=== PATIENT | female | born 1980 | race African-American/Black ===

== ENCOUNTER 2021-04-12 16:40 | Emergency (ER) | payer OTHER ==
[~2021-04-12] VITALS: Ht 167.6 cm; Wt 75.0 kg
[2021-04-12] MEDS ORDERED: BUSP5TA PO (17:04)
[2021-04-12] MEDS ORDERED: FLUO10CA18 PO (17:04)
[2021-04-12] MEDS ORDERED: LORazepam 1 MG TAB PO STA (17:42)
[2021-04-12 21:25] VITALS: BP 126/90
== END 2021-04-12 20:30 | disposition home or self-care (01) ==
LOC: M ED 16:40
DX: F43.0 Acute stress reaction (principal); F41.9 Anxiety disorder, unspecified; Z88.0 Allergy status to penicillin; Z98.84 Bariatric surgery status

== ENCOUNTER 2022-10-25 12:10 | Inpatient (IN) | payer OTHER ==
[~2022-10-25] VITALS: Ht 167.6 cm; Wt 60.8 kg
[~2022-10-25 12:10] MED LIST: BUSP5TA PO; FLUO10CA18 PO
[2022-10-25] MEDS ORDERED: MULT-90 PO (12:34)
[2022-10-25 13:12] LABS: VENOUS BASE EXCESS -1.6 (-2.0-2.0); VENOUS HCO3 21.7 MMOL/L (23.0-27.0); VENOUS O2 SATURATION 68.7 % (60.0-80.0); VENOUS PARTIAL PRESSURE CO2 31.8 mmHg (38.0-50.0); VENOUS PARTIAL PRESSURE O2 37.8 mmHg (30.0-50.0); VENOUS PH 7.452 UNITS (7.330-7.430); VENOUS STANDARD HCO3 22.6 MMOL/L; VENOUS TOTAL CO2 22.7 MMOL/L (24.0-28.0)
[2022-10-25 13:18] LABS: BASO % 0.8 % (0.0-1.0); EOS % 0.3 % (0.0-3.0); HEMATOCRIT 30.5 % (36.0-47.0); HEMOGLOBIN 9.1 g/dl (12.0-15.5); LYMPH # 0.5 10^3/uL (1.5-5.0); LYMPH % 12.9 % (24.0-44.0); MEAN CORPUSCULAR HEMOGLOBIN 23.2 pg (27.0-33.0); MEAN CORPUSCULAR HGB CONC 29.8 g/dl (32.0-36.5); MEAN CORPUSCULAR VOLUME 77.8 fl (80.0-96.0); MONO # 0.3 10^3/uL (0.0-0.8); MONO % 8.6 % (2.0-8.0); NEUTROPHILS # 3.1 10^3/uL (1.5-8.5); NEUTROPHILS % 76.9 % (36.0-66.0); PLATELET COUNT, AUTOMATED 140 10^3/uL (150-450); RED BLOOD COUNT 3.92 10^6/uL (4.00-5.40)
[2022-10-25 13:41] LABS: ETHYL ALCOHOL (ETHANOL) < 0.003 % (0.000-0.010)
[2022-10-25 13:45] LABS: VITAMIN B12 LEVEL 709 PG/ML (211-911)
[2022-10-25 13:46] LABS: THYROID STIMULATING HORMONE 1.179 uIU/ML (0.55-4.78)
[2022-10-25 13:47] LABS: OSMOLALITY SERUM 281 MOSM/KG (275-295)
[2022-10-25 13:50] LABS: ALBUMIN 3.6 G/DL (3.2-5.2); ALKALINE PHOSPHATASE 116 U/L (46-116); ALT/SGPT 79 U/L (7.0-40); AST/SGOT 367 U/L (<34); BILIRUBIN,DIRECT 0.6 MG/DL (<0.4); BLOOD UREA NITROGEN 8 MG/DL (9-23); CALCIUM LEVEL 8.2 MG/DL (8.5-10.1); CARBON DIOXIDE LEVEL 21 MMOL/L (20-31); CHLORIDE LEVEL 94 MMOL/L (98-107); CREATININE FOR GFR 0.39 MG/DL (0.55-1.30); GLOMERULAR FILTRATION RATE > 60.0 (>58); GLUCOSE, FASTING 70 MG/DL (60-100); MAGNESIUM LEVEL 1.4 MG/DL (1.8-2.4); POTASSIUM SERUM 2.8 MMOL/L (3.5-5.1); SODIUM LEVEL 137 MMOL/L (136-145); TOTAL PROTEIN 8.1 G/DL (5.7-8.2)
[2022-10-25] MEDS ORDERED: MAG SULF 1GM/100ML (MAG RUN) 1 GM in IV 1 EA IV ONE ×2 (14:55→16:00)
[2022-10-25] MEDS ORDERED: MED REC IN PROGRESS XX SCH (15:20)
[2022-10-25] MEDS ORDERED: KCL 10MEQ/100ML SWI (KRUN) 10 MEQ in IV 1 EA IV ONE (15:25)
[2022-10-25] MEDS ORDERED: HOME MED LIST COMPLETE! XX SCH (15:25)
[2022-10-25] MEDS ORDERED: CALCIUM GLUCONATE 1,000 MG in D5W MINI-BAG PLUS 100 ML IV ONE (15:25)
[2022-10-25 16:12] LABS: PHOSPHORUS LEVEL 3.3 MG/DL (2.5-4.9)
[2022-10-25] MEDS ORDERED: POTASSIUM CHLORIDE 10% LIQ 20MEQ/15ML UDC PO ONE ×2 (16:15→22:00)
[2022-10-25] MEDS ORDERED: MIDAZOLAM INJ 2MG/2ML VIAL IV STA (16:22)
[2022-10-25] MEDS ORDERED: KCL 10MEQ/100ML SWI (KRUN) 10 MEQ in IV 1 EA IV SCH (17:00)
[2022-10-25] MEDS ORDERED: PROHANCE 279.3MG/ML 15ML VIAL As Ordered ONE (17:35)
[2022-10-25 18:55] LABS: INR 1.02; PROTHROMBIN TIME 13.6 SECONDS (12.5-14.5)
[2022-10-25 18:56] LABS: PARTIAL THROMBOPLASTIN TIME 25.6 SECONDS (24.8-34.2)
[2022-10-25 19:04] LABS: IRON (FE) 56 UG/DL (50-170); TOTAL IRON BINDING CAPACITY 294 UG/DL (250-425)
[2022-10-25 19:06] LABS: BLOOD UREA NITROGEN 7 MG/DL (9-23); CALCIUM LEVEL 8.5 MG/DL (8.5-10.1); CARBON DIOXIDE LEVEL 24 MMOL/L (20-31); CHLORIDE LEVEL 92 MMOL/L (98-107); GLOMERULAR FILTRATION RATE > 60.0 (>58); GLUCOSE, FASTING 58 MG/DL (60-100); PHOSPHORUS LEVEL 3.5 MG/DL (2.5-4.9); POTASSIUM SERUM 2.9 MMOL/L (3.5-5.1); SODIUM LEVEL 136 MMOL/L (136-145)
[2022-10-25] MEDS ORDERED: POTASSIUM CHLORIDE 10MEQ SR TABLET PO ONE (19:30)
[2022-10-25] MEDS ORDERED: GLUCAGON INJ 1MG VIAL SC PRN (19:35)
[2022-10-25] MEDS ORDERED: DEXTROSE 50% 50ML SYRINGE IV PRN (19:35)
[2022-10-25] MEDS ORDERED: GLUCOSE 4GM CHEW TABLET PO PRN (19:35)
[2022-10-25 19:38] LABS: HEPATITIS B CORE ANTIBODY IGM NEGATIVE (NEGATIVE); HEPATITIS C VIRUS ABY INDEX 0.16 INDEX (<0.8)
[2022-10-25] MEDS ORDERED: KCL 10MEQ/100ML SWI (KRUN) 100 ML IV SCH (20:00)
[2022-10-25] MEDS: KCL 10MEQ/100ML SWI (KRUN) 100 ML IV SCH ×2 (22:10→23:52)
[2022-10-25] MEDS: HEPARIN SOD (PORCINE) 5000UNITS/ML 1ML VIAL/SYRINGE SC SCH (22:17)
[2022-10-25] MEDS: PROCHLORPERAZINE 5MG TAB PO PRN (22:36)
[2022-10-26] MEDS: HEPARIN SOD (PORCINE) 5000UNITS/ML 1ML VIAL/SYRINGE SC SCH ×3 (06:00→22:05)
[2022-10-26 07:37] LABS: BASO % 0.7 % (0.0-1.0); HEMATOCRIT 27.7 % (36.0-47.0); HEMOGLOBIN 8.3 g/dl (12.0-15.5); LYMPH % 33.2 % (24.0-44.0); MEAN CORPUSCULAR HEMOGLOBIN 23.5 pg (27.0-33.0); MEAN CORPUSCULAR VOLUME 78.5 fl (80.0-96.0); MONO # 0.4 10^3/uL (0.0-0.8); MONO % 13.7 % (2.0-8.0); NEUTROPHILS # 1.5 10^3/uL (1.5-8.5); NEUTROPHILS % 51.1 % (36.0-66.0); PLATELET COUNT, AUTOMATED 124 10^3/uL (150-450); RED BLOOD COUNT 3.53 10^6/uL (4.00-5.40); WHITE BLOOD COUNT 2.9 10^3/uL (4.0-10.0)
[2022-10-26 08:00] LABS: ALBUMIN 3.2 G/DL (3.2-5.2); ALKALINE PHOSPHATASE 124 U/L (46-116); ALT/SGPT 76 U/L (7.0-40); AST/SGOT 430 U/L (<34); BILIRUBIN,TOTAL 1.1 MG/DL (0.3-1.2); BLOOD UREA NITROGEN 5 MG/DL (9-23); CALCIUM LEVEL 8.6 MG/DL (8.5-10.1); CARBON DIOXIDE LEVEL 28 MMOL/L (20-31); CHLORIDE LEVEL 97 MMOL/L (98-107); GLOMERULAR FILTRATION RATE > 60.0 (>58); GLUCOSE, FASTING 101 MG/DL (60-100); MAGNESIUM LEVEL 1.6 MG/DL (1.8-2.4); POTASSIUM SERUM 2.8 MMOL/L (3.5-5.1); SODIUM LEVEL 137 MMOL/L (136-145); TOTAL PROTEIN 7.3 G/DL (5.7-8.2)
[2022-10-26] MEDS: MAG SULF 1GM/100ML (MAG RUN) 1 GM in IV 1 EA IV SCH ×2 (08:53→09:49)
[2022-10-26] MEDS ORDERED: SCOPOLAMINE 1MG TRANSDERMAL PATCH TOP SCH (09:00)
[2022-10-26] MEDS ORDERED: ISOVUE-370 76% 100ML VIAL As Ordered ONE (10:17)
[2022-10-26] MEDS: POTASSIUM CHLORIDE 10% LIQ 20MEQ/15ML UDC PO SCH ×2 (11:09→22:04)
[2022-10-26] MEDS: KCL 10MEQ/100ML SWI (KRUN) 10 MEQ in IV 1 EA IV SCH ×2 (11:09→12:11)
[2022-10-26] MEDS: KETOROLAC 30 MG/ML 1ML VIAL IV PRN ×2 (11:09→22:07)
[2022-10-26 15:14] LABS: ALBUMIN 2.9 G/DL (3.2-5.2); ALKALINE PHOSPHATASE 131 U/L (46-116); ALT/SGPT 73 U/L (7.0-40); AST/SGOT 396 U/L (<34); BILIRUBIN,TOTAL 0.7 MG/DL (0.3-1.2); BLOOD UREA NITROGEN 5 MG/DL (9-23); CALCIUM LEVEL 8.3 MG/DL (8.5-10.1); CARBON DIOXIDE LEVEL 29 MMOL/L (20-31); CHLORIDE LEVEL 101 MMOL/L (98-107); CREATININE FOR GFR 0.42 MG/DL (0.55-1.30); GLOMERULAR FILTRATION RATE > 60.0 (>58); GLUCOSE, FASTING 117 MG/DL (60-100); MAGNESIUM LEVEL 2.1 MG/DL (1.8-2.4); SODIUM LEVEL 140 MMOL/L (136-145); TOTAL PROTEIN 6.9 G/DL (5.7-8.2)
[2022-10-26] MEDS ORDERED: LORazepam 1 MG TAB PO ONE (17:30)
[2022-10-26 17:44] LABS: LIPASE 84 U/L (12-53)
[2022-10-26] MEDS ORDERED: LORazepam 2 MG/ML 1ML VIAL IV ONE (18:00)
[2022-10-26] MEDS ORDERED: PROHANCE 279.3MG/ML 15ML VIAL As Ordered ONE (18:42)
[2022-10-26 20:18] VITALS: BP 138/93; TEMP 98.4; O2SAT 100
[2022-10-26] MEDS: RAMELTEON 8 MG TAB (ROZEREM) PO SCH (22:03)
[2022-10-27] VITALS (30 sets, daily range): BP systolic 115–149; BP diastolic 74–98; TEMP 97.7–98.5; O2SAT 97–100
[2022-10-27 03:31] LABS: BASO % 0.7 % (0.0-1.0); EOS # 0.1 10^3/uL (0.0-0.5); EOS % 2.1 % (0.0-3.0); HEMATOCRIT 26.4 % (36.0-47.0); HEMOGLOBIN 7.6 g/dl (12.0-15.5); LYMPH # 0.8 10^3/uL (1.5-5.0); LYMPH % 28.5 % (24.0-44.0); MEAN CORPUSCULAR HGB CONC 28.8 g/dl (32.0-36.5); MONO # 0.3 10^3/uL (0.0-0.8); MONO % 8.6 % (2.0-8.0); NEUTROPHILS # 1.7 10^3/uL (1.5-8.5); NEUTROPHILS % 59.8 % (36.0-66.0); PLATELET COUNT, AUTOMATED 115 10^3/uL (150-450); WHITE BLOOD COUNT 2.9 10^3/uL (4.0-10.0)
[2022-10-27 03:41] LABS: ALBUMIN 2.7 G/DL (3.2-5.2); ALKALINE PHOSPHATASE 133 U/L (46-116); ALT/SGPT 60 U/L (7.0-40); AST/SGOT 252 U/L (<34); BILIRUBIN,TOTAL 0.6 MG/DL (0.3-1.2); BLOOD UREA NITROGEN 7 MG/DL (9-23); CARBON DIOXIDE LEVEL 27 MMOL/L (20-31); CHLORIDE LEVEL 104 MMOL/L (98-107); CREATININE FOR GFR 0.35 MG/DL (0.55-1.30); GLOMERULAR FILTRATION RATE > 60.0 (>58); GLUCOSE, FASTING 102 MG/DL (60-100); POTASSIUM SERUM 3.4 MMOL/L (3.5-5.1); SODIUM LEVEL 141 MMOL/L (136-145); TOTAL PROTEIN 6.6 G/DL (5.7-8.2)
[2022-10-27] MEDS: POTASSIUM CHLORIDE 10% LIQ 20MEQ/15ML UDC PO SCH ×2 (05:49→21:08)
[2022-10-27] MEDS: HEPARIN SOD (PORCINE) 5000UNITS/ML 1ML VIAL/SYRINGE SC SCH ×3 (05:50→21:13)
[2022-10-27] MEDS: KETOROLAC 30 MG/ML 1ML VIAL IV PRN ×2 (06:52→15:18)
[2022-10-27 09:55] LABS: IMMUNOGLOBULIN A 176.2 MG/DL (40-350)
[2022-10-27] MEDS ORDERED: IRON SUCROSE 100MG 5ML VIAL IV ONE (10:15)
[2022-10-27] MEDS ORDERED: IRON SUCROSE 300 MG in NS 250 ML OVER 90 MIN. IV ONE (13:00)
[2022-10-27 15:27] LABS: ALBUMIN 2.8 G/DL (3.2-5.2); ALKALINE PHOSPHATASE 123 U/L (46-116); ALT/SGPT 55 U/L (7.0-40); AST/SGOT 197 U/L (<34); BILIRUBIN,TOTAL 0.6 MG/DL (0.3-1.2); BLOOD UREA NITROGEN 8 MG/DL (9-23); CARBON DIOXIDE LEVEL 28 MMOL/L (20-31); CHLORIDE LEVEL 102 MMOL/L (98-107); CREATININE FOR GFR 0.34 MG/DL (0.55-1.30); GLOMERULAR FILTRATION RATE > 60.0 (>58); GLUCOSE, FASTING 99 MG/DL (60-100); POTASSIUM SERUM 3.2 MMOL/L (3.5-5.1); SODIUM LEVEL 138 MMOL/L (136-145); TOTAL PROTEIN 6.4 G/DL (5.7-8.2)
[2022-10-27] MEDS: PROCHLORPERAZINE 5MG TAB PO PRN (16:32)
[2022-10-27] MEDS: RAMELTEON 8 MG TAB (ROZEREM) PO SCH (21:08)
[2022-10-28] VITALS (11 sets, daily range): BP systolic 113–132; BP diastolic 77–86; TEMP 97.3–98.2; O2SAT 96–100
[2022-10-28] MEDS: KETOROLAC 30 MG/ML 1ML VIAL IV PRN ×2 (02:08→08:15)
[2022-10-28 05:10] LABS: BASO % 0.3 % (0.0-1.0); EOS # 0.1 10^3/uL (0.0-0.5); EOS % 2.5 % (0.0-3.0); HEMATOCRIT 26.7 % (36.0-47.0); HEMOGLOBIN 7.8 g/dl (12.0-15.5); LYMPH # 0.9 10^3/uL (1.5-5.0); LYMPH % 25.2 % (24.0-44.0); MEAN CORPUSCULAR HEMOGLOBIN 23.6 pg (27.0-33.0); MEAN CORPUSCULAR HGB CONC 29.2 g/dl (32.0-36.5); MEAN CORPUSCULAR VOLUME 80.7 fl (80.0-96.0); MONO # 0.4 10^3/uL (0.0-0.8); MONO % 11.3 % (2.0-8.0); NEUTROPHILS # 2.1 10^3/uL (1.5-8.5); NEUTROPHILS % 60.4 % (36.0-66.0); PLATELET COUNT, AUTOMATED 141 10^3/uL (150-450); RED BLOOD COUNT 3.31 10^6/uL (4.00-5.40); WHITE BLOOD COUNT 3.5 10^3/uL (4.0-10.0)
[2022-10-28 05:31] LABS: ALBUMIN 2.7 G/DL (3.2-5.2); ALKALINE PHOSPHATASE 127 U/L (46-116); ALT/SGPT 49 U/L (7.0-40); AST/SGOT 141 U/L (<34); BILIRUBIN,TOTAL 0.4 MG/DL (0.3-1.2); BLOOD UREA NITROGEN 8 MG/DL (9-23); CARBON DIOXIDE LEVEL 28 MMOL/L (20-31); CHLORIDE LEVEL 104 MMOL/L (98-107); CREATININE FOR GFR 0.32 MG/DL (0.55-1.30); GLOMERULAR FILTRATION RATE > 60.0 (>58); GLUCOSE, FASTING 90 MG/DL (60-100); POTASSIUM SERUM 3.4 MMOL/L (3.5-5.1); SODIUM LEVEL 140 MMOL/L (136-145); TOTAL PROTEIN 6.3 G/DL (5.7-8.2)
[2022-10-28] MEDS: HEPARIN SOD (PORCINE) 5000UNITS/ML 1ML VIAL/SYRINGE SC SCH (06:03)
[2022-10-28] MEDS ORDERED: ISOVUE-370 76% 100ML VIAL As Ordered ONE (08:43)
[2022-10-28] MEDS ORDERED: IRON SUCROSE 300 MG in NS 250 ML IV SCH (12:00)
[2022-10-28] MEDS ORDERED: DRON2.5C11 PO (12:03)
[2022-10-28] MEDS ORDERED: K-TA1TAB PO (12:03)
[2022-10-28] MEDS ORDERED: TRAN1DIS4 TOP (12:03)
[2022-10-28] MEDS ORDERED: IBUP-1114 PO (12:03)
[2022-10-28] MEDS ORDERED: ACETAMINOPHEN 500 MG TAB PO PRN (12:55)
[2022-10-28] MEDS: POTASSIUM CHLORIDE 10% LIQ 20MEQ/15ML UDC PO SCH (13:13)
[2022-10-28] MEDS ORDERED: IBUPROFEN 400MG TAB PO ONE (15:00)
[2022-10-28] MEDS ORDERED: IBUPROFEN 400MG TAB PO PRN (21:00)
[2022-10-28] MEDS ORDERED: IBUPROFEN 800 MG TAB PO PRN (21:00)
[2022-10-29 23:07] LABS: BETA 2 MICROGLOBULIN 1.6 mg/L (0.6-2.4); FREE KAPPA LIGHT CHAINS SERUM 30.7 mg/L (3.3-19.4); FREE LAMBDA LIGHT CHAINS SERUM 28.1 mg/L (5.7-26.3); HAPTOGLOBIN 148 mg/dL (33-278); IMMUNOGLOBULIN D 5.46 mg/dL (<14.11); IMMUNOTYPING SERUM IGA SO 160 mg/dL (87-352); IMMUNOTYPING SERUM IGM SO 106 mg/dL (26-217); KAPPA/LAMBDA RATIO SERUM 1.09 (0.26-1.65)
== END 2022-10-28 14:55 | disposition home or self-care (01) | DRG 74 ==
LOC: M ED 12:10 → M ED INP 15:49 → M PCU 10-26 20:09
PROVIDERS: ADMIT Student in an Organized Health Care Education/Training Program; ATTEND Student in an Organized Health Care Education/Training Program
DX: G57.31 Lesion of lateral popliteal nerve, right lower limb (principal); K90.9 Intestinal malabsorption, unspecified; D61.818 Other pancytopenia; M21.371 Foot drop, right foot; E87.6 Hypokalemia; D69.6 Thrombocytopenia, unspecified; E83.42 Hypomagnesemia; E83.51 Hypocalcemia; Z98.84 Bariatric surgery status; R94.31 Abnormal electrocardiogram [ECG] [EKG]; Z88.0 Allergy status to penicillin; Z88.8 Allergy status to other drugs, medicaments and biological substances; Z79.899 Other long term (current) drug therapy; R16.0 Hepatomegaly, not elsewhere classified; D75.9 Disease of blood and blood-forming organs, unspecified; D50.9 Iron deficiency anemia, unspecified

== ENCOUNTER → 2022-11-09 | Outpatient (CLI) | payer OTHER ==
[~2022-11-09] MED LIST changes: +DRON2.5C11 PO; +IBUP-1114 PO; +K-TA1TAB PO; +MULT-90 PO; +TRAN1DIS4 TOP
== END ==
LOC: M OUTALCOH 08:04
PROVIDERS: ATTEND Psychiatry & Neurology Psychiatry
DX: F10.10 Alcohol abuse, uncomplicated (principal)

== ENCOUNTER 2022-11-16 08:26 | Outpatient (RCR) | payer OTHER | END 2022-11-17 | LOC: M OUTALCOH 08:26 | PROVIDERS: ATTEND Psychiatry & Neurology Psychiatry | DX: F10.20 Alcohol dependence, uncomplicated (principal) ==

== ENCOUNTER 2023-01-16 12:00 | Outpatient (RCR) | payer OTHER ==
[~2023-01-16 12:00] MED LIST changes: +BUSP5TA; +CITA20TA6; +IRON65TA2 PO
== END 2023-01-17 ==
LOC: M OUTALCOH 12:00
PROVIDERS: ATTEND Psychiatry & Neurology Psychiatry
DX: F10.20 Alcohol dependence, uncomplicated (principal)

== ENCOUNTER 2023-02-13 08:40 | Outpatient (RCR) | payer OTHER | END 2023-02-16 | LOC: M OUTALCOH 08:40 | PROVIDERS: ATTEND Psychiatry & Neurology Psychiatry | DX: F10.20 Alcohol dependence, uncomplicated (principal) ==

== ENCOUNTER 2023-06-08 11:45 | Outpatient (CLI) | payer OTHER ==
[2023-06-08] MEDS: ACETAMINOPHEN TAB 650MG DOSE (2X325MG) PO ONE (11:56)
[2023-06-08] MEDS: diphenhydrAMINE 25MG CAP PO ONE (11:56)
[2023-06-08] MEDS: IRON SUCROSE 300 MG in NS 250 ML OVER 90 MIN. IV ONE (11:57)
[2023-06-08 12:16] VITALS: BP 112/68; O2SAT 97
[2023-06-08 13:40] VITALS: BP 101/60; O2SAT 99
== END 2023-06-08 13:40 ==
LOC: M INFU 11:45
PROVIDERS: ATTEND Specialist
DX: D50.9 Iron deficiency anemia, unspecified (principal); Z88.0 Allergy status to penicillin
CPT/HCPCS: 96365; 96366; J1756

== ENCOUNTER 2023-08-30 05:49 | Emergency (ER) | payer OTHER ==
[~2023-08-30] VITALS: Ht 167.6 cm; Wt 62.7 kg
[~2023-08-30 05:49] MED LIST changes: +FLUO-290 PO; -FLUO10CA18 PO
[2023-08-30] MEDS: NS 1,000 ML IV ONE (06:43)
[2023-08-30] MEDS: METOCLOPRAMIDE INJ 10MG/2ML VIAL IV ONE (06:43)
[2023-08-30 06:57] LABS: BASO % 0.8 % (0.0-1.0); EOS % 0.8 % (0.0-3.0); HEMATOCRIT 32.6 % (36.0-47.0); LYMPH # 0.9 10^3/uL (1.5-5.0); LYMPH % 18.7 % (24.0-44.0); MEAN CORPUSCULAR HEMOGLOBIN 22.7 pg (27.0-33.0); MEAN CORPUSCULAR HGB CONC 30.7 g/dl (32.0-36.5); MEAN CORPUSCULAR VOLUME 74.1 fl (80.0-96.0); MONO # 0.5 10^3/uL (0.0-0.8); MONO % 9.5 % (2.0-8.0); NEUTROPHILS # 3.4 10^3/uL (1.5-8.5); NEUTROPHILS % 69.8 % (36.0-66.0); PLATELET COUNT, AUTOMATED 190 10^3/uL (150-450); WHITE BLOOD COUNT 4.9 10^3/uL (4.0-10.0)
[2023-08-30 07:24] LABS: LIPASE 23 U/L (12-53)
[2023-08-30 07:26] LABS: ALBUMIN 3.8 G/DL (3.2-5.2); ALKALINE PHOSPHATASE 121 U/L (46-116); ALT/SGPT 26 U/L (7.0-40); AST/SGOT 85 U/L (<34); BILIRUBIN,DIRECT 0.4 MG/DL (<0.4); BLOOD UREA NITROGEN 7 MG/DL (9-23); CARBON DIOXIDE LEVEL 23 MMOL/L (20-31); CHLORIDE LEVEL 101 MMOL/L (98-107); CREATININE FOR GFR 0.46 MG/DL (0.55-1.30); GLOMERULAR FILTRATION RATE > 60.0 (>58); GLUCOSE, FASTING 93 MG/DL (60-100); POTASSIUM SERUM 3.6 MMOL/L (3.5-5.1); SODIUM LEVEL 138 MMOL/L (136-145); TOTAL PROTEIN 8.3 G/DL (5.7-8.2)
[2023-08-30] MEDS: PROMETHAZINE 25MG/ML 1ML VIAL IV ONE (07:29)
[2023-08-30] MEDS: KETOROLAC 30 MG/ML 1ML VIAL IV ONE (07:31)
[2023-08-30 07:43] LABS: MAGNESIUM LEVEL 1.4 MG/DL (1.8-2.4)
[2023-08-30] MEDS: MAGNESIUM OXIDE 400MG TAB (MAG-OX) PO ONE (08:39)
[2023-08-30] MEDS: NS 500 ML IV ONE (08:39)
[2023-08-30] MEDS: diphenhydrAMINE 50MG/ML VIAL IV ONE (08:39)
[2023-08-30] MEDS ORDERED: PROM12.56 PO (09:43)
[2023-08-30] MEDS ORDERED: MAGN400T2 PO (09:43)
[2023-08-30 10:00] VITALS: BP 139/87; TEMP 97.8; O2SAT 100
== END 2023-08-30 10:03 | disposition home or self-care (01) ==
LOC: M ED 05:49
DX: E83.42 Hypomagnesemia (principal); R11.10 Vomiting, unspecified; F41.9 Anxiety disorder, unspecified; F32.A Depression, unspecified; Z98.84 Bariatric surgery status; Z88.0 Allergy status to penicillin; Z79.1 Long term (current) use of non-steroidal anti-inflammatories (NSAID); Z79.899 Other long term (current) drug therapy
CPT/HCPCS: 80047; 80048; 80076; 83690; 83735; 84702; 85025; 93041; 96361; 96374; 96375; 99284; J1100; J1200; J1885; J2550; J2765

== ENCOUNTER → 2023-11-28 | Outpatient (CLI) | payer OTHER ==
[~2023-11-28] MED LIST changes: +MAGN400T2 PO; +PROM12.56 PO
== END ==
LOC: M OUTALCOH 08:31
PROVIDERS: ATTEND Psychiatry & Neurology Psychiatry
DX: F10.20 Alcohol dependence, uncomplicated (principal); F17.200 Nicotine dependence, unspecified, uncomplicated

== ENCOUNTER → 2023-12-18 | Outpatient (RCR) | payer OTHER | LOC: M OUTALCOH 12-01 09:41 | PROVIDERS: ATTEND Psychiatry & Neurology Psychiatry | DX: F10.20 Alcohol dependence, uncomplicated (principal); F17.200 Nicotine dependence, unspecified, uncomplicated ==

== ENCOUNTER 2024-01-12 12:00 | Outpatient (RCR) | payer OTHER | END 2024-01-18 | LOC: M OUTALCOH 12:00 | PROVIDERS: ATTEND Psychiatry & Neurology Psychiatry | DX: F10.20 Alcohol dependence, uncomplicated (principal); F17.200 Nicotine dependence, unspecified, uncomplicated ==

== ENCOUNTER 2024-02-12 14:00 | Outpatient (RCR) | payer OTHER | END 2024-02-17 | LOC: M OUTALCOH 14:00 | PROVIDERS: ATTEND Psychiatry & Neurology Psychiatry | DX: F10.20 Alcohol dependence, uncomplicated (principal); F17.200 Nicotine dependence, unspecified, uncomplicated ==

== ENCOUNTER 2024-09-25 09:09 | Emergency (ER) | payer OTHER ==
[~2024-09-25] VITALS: Ht 167.6 cm; Wt 69.2 kg
[~2024-09-25 09:09] MED LIST changes: -DRON2.5C11 PO; +DRON2.5C17 PO
[2024-09-25 09:13] VITALS: BP 109/67; TEMP 98.3; O2SAT 100
== END 2024-09-25 11:24 | disposition left against medical advice (07) ==
LOC: M ED 09:09
DX: Z53.21 Procedure and treatment not carried out due to patient leaving prior to being seen by health care provider (principal)

== ENCOUNTER → 2024-12-04 | Outpatient (CLI) | payer OTHER ==
[2024-12-04 12:15] LABS: BASO # 0.1 10^3/uL (0.0-0.2); BASO % 1.5 % (0.0-1.0); EOS # 0.1 10^3/uL (0.0-0.5); EOS % 1.7 % (0.0-3.0); LYMPH # 1.4 10^3/uL (1.5-5.0); LYMPH % 26.7 % (24.0-44.0); MONO # 0.6 10^3/uL (0.0-0.8); MONO % 11.1 % (2.0-8.0); NEUTROPHILS # 3.1 10^3/uL (1.5-8.5); NEUTROPHILS % 58.8 % (36.0-66.0); PLATELET COUNT, AUTOMATED 917 10^3/uL (150-450)
[2024-12-04 12:34] LABS: LDH LACTATE DEHYDROGENASE 299 U/L (120-246)
[2024-12-04 12:36] LABS: ALT/SGPT 42 U/L (7.0-40); AST/SGOT 59 U/L (<34); C REACTIVE PROTEIN QUANTITATIV < 0.50 MG/DL (<1.0); CALCIUM LEVEL 8.5 MG/DL (8.5-10.1); CARBON DIOXIDE LEVEL 26 MMOL/L (20-31); CHLORIDE LEVEL 103 MMOL/L (98-107); CPK CREATINE PHOSPHOKINASE 86 U/L (34-145); CREATININE FOR GFR 0.47 MG/DL (0.55-1.30); GLOMERULAR FILTRATION RATE > 90.0 (>58); IRON (FE) 16 UG/DL (50-170); MAGNESIUM LEVEL 2.2 MG/DL (1.8-2.4); PERCENT SATURATION 4.1 % (13.2-45.0); POTASSIUM SERUM 4.6 MMOL/L (3.5-5.1); SODIUM LEVEL 137 MMOL/L (136-145)
[2024-12-04 12:37] LABS: TOTAL 25(OH) VITAMIN D 4.4 NG/ML (20.0-100.0)
[2024-12-04 12:38] LABS: FREE T4 0.94 NG/DL (0.89-1.76); VITAMIN B12 LEVEL 483 PG/ML (211-911)
[2024-12-04 13:27] LABS: ERYTHROCYTE SEDIMENTATION RATE 110 mm/hr (0-20)
[2024-12-07 20:17] LABS: LYME TOTAL ANTIBODY CIA <= 0.90 Index (<=0.90)
== END ==
LOC: M LAB 06:10
PROVIDERS: ATTEND Nurse Practitioner Family
DX: D64.9 Anemia, unspecified (principal); R53.83 Other fatigue